=== PATIENT | male | born 1950 | race Caucasian/White ===

== ENCOUNTER 2019-02-09 22:28 | Observation (INO) | payer MEDICARE ==
[2019-02-09] MEDS ORDERED: Cardizem IV 50 MG/10 ML IV ONE ×2 (22:56→23:23)
--- NOTE | 2019-02-09 22:56 | ERPHSYRPT ---
- History of Present Illness Time Seen by Provider: 02/09/19 22:52 Source: patient, family Exam Limitations: no limitations Physician History: pt with hx of afib on tx and intermittent , but cannot get out of it with usual methods/tx tongiht - no CP or sobreath already on eliquis Timing/Duration: today Activities at Onset: activity Quality: other (no pain) Location: other (no pain) Chest Pain Radiation: no radiation Severity of Pain-Max: none Severity of Pain-Current: none Nitro Today/Relief: no nitro taken today Aspirin Treatment Today: no aspirin today Associated Symptoms: other (palpitations) Allergies/Adverse Reactions: No Known Drug Allergies Allergy (Verified 02/09/19 22:38) Home Medications: Cholecalciferol (Vitamin D3) [Vitamin D] 1,000 unit PO DAILY 04/18/16 [ History] Esomeprazole Magnesium [Nexium] 40 mg PO DAILY 04/18/16 [History] Glucosamine/MSM/Chondroitin A [Glucosamine Chondroit MSM Tab] 1 each PO BID [History] Multivit-Mins/Iron/Folic/Lycop [Centrum Men's Tablet] 1 each PO DAILY 04/18/16 [ History] Pravastatin Sodium [Pravachol] 10 mg PO DAILY 04/18/16 [History] Diltiazem HCl 30 mg [Cardizem 30 MG] 240 mg PO DAILY 05/11/16 [History] Losartan Potassium 50 mg [Cozaar 50 MG] 1 tab PO DAILY 02/09/19 [History] Hx Tetanus, Diphtheria Vaccination/Date Given: No Hx Influenza Vaccination/Date Given: Yes (2014) Hx Pneumococcal Vaccination/Date Given: No - Review of Systems Constitutional: No Fever, No Chills Eyes: No Symptoms Ears, Nose, & Throat: No Symptoms Respiratory: No Cough, No Dyspnea Cardiac: Palpitations, No Chest Pain, No Edema, No Syncope Abdominal/Gastrointestinal: No Abdominal Pain, No Nausea, No Vomiting, No Diarrhea Genitourinary Symptoms: No Dysuria Musculoskeletal: No Back Pain, No Neck Pain Skin: No Rash Neurological: No Dizziness, No Focal Weakness, No Sensory Changes Psychological: No Symptoms Endocrine: No Symptoms All Other Systems: Reviewed and Negative - Past Medical History Pertinent Past Medical History: Yes Neurological History: No Pertinent History ENT History: No Pertinent History Cardiac History: Arrhythmia, Hypertension Respiratory History: Sleep Apnea Endocrine Medical History: No Pertinent History Musculoskeletal History: Arthritis GI Medical History: GERD History: No Pertinent History Psycho-Social History: No Pertinent History Male Reproductive Disorders: Prostate Problems - Past Surgical History Past Surgical History: Yes Male Surgical History: Prostate Surgery, Vasectomy - Social History Smoking Status: Never smoker Exposure to second hand smoke: No Alcohol Use: Socially Drug Use: none Patient Lives Alone: No Significant Family History: no pertinent family hx - Nursing Vital Signs Nursing Vital Signs: Initial Vital Signs Temperature 98.2 F 02/09/19 22:44 Pulse Rate 85 02/09/19 22:44 Respiratory Rate 21 02/09/19 22:44 Blood Pressure 139/94 02/09/19 22:44 O2 Sat by Pulse Oximetry 96 02/09/19 22:44 Pain Scale Pain Intensity 0 - Physical Exam General Appearance: no apparent distress, alert Eye Exam: PERRL/EOMI, eyes nml inspection Ears, Nose, Throat Exam: normal ENT inspection, moist mucous membranes Neck Exam: normal inspection, non-tender, supple Respiratory Exam: normal breath sounds, lungs clear, No respiratory distress Cardiovascular Exam: normal heart sounds, irregular, No edema Gastrointestinal/Abdomen Exam: soft, No tenderness, No mass Back Exam: normal inspection, No CVA tenderness, No vertebral tenderness Extremity Exam: normal inspection, normal range of motion Neurologic Exam: alert, oriented x 3, cooperative, normal mood/affect, nml cerebellar function, sensation nml, No motor deficits Skin Exam: normal color, warm, dry Lymphatic Exam: No adenopathy - Course Nursing assessment & vital signs reviewed: Yes EKG Interpreted by Me: A-fib, NORMAL INTERVALS, Non-specific ST Changes, Other ( [id number]) Ordered Tests: Active Orders 24 hr Category Date Time Status Filler Shredder Machine STAT Care 02/09/19 22:57 Active EKG-ER Only STAT Care 02/09/19 22:56 Active IV Insertion STAT Care 02/09/19 22:56 Active Pulse Oximetry (ED) STAT Care 02/09/19 22:56 Active CHEST 2 VIEWS (PA AND LAT) Stat Exams 02/09/19 22:56 Taken CBC W DIFF Stat Lab 02/09/19 22:55 Completed CMP Stat Lab 02/09/19 22:55 Completed D-DIMER QUANTITATION Stat Lab 02/09/19 22:55 Completed Lactic Acid Stat Lab 02/09/19 22:56 Completed NT PRO BNP Stat Lab 02/09/19 22:55 Completed TROPONIN Q3H Lab 02/09/19 22:55 Completed TROPONIN Q3H Lab 02/10/19 02:00 Ordered TROPONIN Q3H Lab 02/10/19 05:00 Ordered TROPONIN Q3H Lab 02/10/19 08:00 Ordered TROPONIN Q3H Lab 02/10/19 11:00 Ordered Medication Summary Generic Name Dose Route Start Last Admin Trade Name Freq PRN Reason Stop Dose Admin Sodium Chloride 1,000 mls @ 100 mls/hr 02/09/19 23:00 02/09/19 23:29 Sodium Chloride 0.9% 1000 Ml IV 03/11/19 22:59 100 mls/hr .Q10H [facility] Administration Discontinued Medications Generic Name Dose Route Start Last Admin Trade Name Freq PRN Reason Stop Dose Admin Diltiazem HCl 10 mg 02/09/19 22:56 02/09/19 23:29 Cardizem Iv 50 Mg/10 Ml IV 02/09/19 22:57 10 mg STAT ONE Administration Diltiazem HCl Confirm 02/09/19 23:23 Cardizem Iv 50 Mg/10 Ml Administered 02/09/19 23:24 Dose 50 mg IV .[facility] Lab/Rad Data: Laboratory Result Diagrams 02/09/19 22:55 02/09/19 22:55 Laboratory Results 02/10/19 02/09/19 02/09/19 Range/Units 00:50 22:55 22:55 WBC (4.0-10.5) K/mm3 RBC (4.1-5.6) M/mm3 Hgb (12.5-18.0) gm/dl Hct (42-50) % MCV (78-100) fl MCH (26-32) pg MCHC (32-36) g/dl RDW (11.5-14.0) % Plt Count (150-450) K/mm3 MPV (6-9.5) fl Gran % (36.0-66.0) % Eos # (Auto) (0-0.5) Absolute Lymphs (auto) (1.0-4.6) Absolute Monos (auto) (0.0-1.3) Lymphocytes % (24.0-44.0) % Monocytes % (0.0-12.0) % Eosinophils % (0.00-5.0) % Basophils % (0.0-0.4) % Absolute Granulocytes (1.4-6.9) Basophils # (0-0.4) D-Dimer 321 (215-500) ng/mL Sodium (137-145) mmol/L Potassium (3.5-5.1) mmol/L Chloride (98-107) mmol/L Carbon Dioxide (22-30) mmol/L Anion Gap (5-15) MEQ/L BUN (9-20) mg/dL Creatinine (0.66-1.25) mg/dL Estimated GFR ML/MIN Glucose (74-106) mg/dL Lactic Acid 1.4 (0.4-2.0) Calcium (8.4-10.2) mg/dL Total Bilirubin (0.2-1.3) mg/dL AST (17-59) U/L ALT (0-50) U/L Alkaline Phosphatase (38-126) U/L Troponin I < 0.012 (0.000-0.034) ng/mL NT-Pro-B Natriuret Pep (0-900) pg/mL Serum Total Protein (6.3-8.2) g/dL Albumin (3.5-5.0) g/dL 02/09/19 02/09/19 Range/Units 22:55 22:55 WBC 7.9 (4.0-10.5) K/mm3 RBC 4.74 (4.1-5.6) M/mm3 Hgb 14.6 (12.5-18.0) gm/dl Hct 43.0 (42-50) % MCV 90.7 (78-100) fl MCH 30.8 (26-32) pg MCHC 34.0 (32-36) g/dl RDW 12.9 (11.5-14.0) % Plt Count 256 (150-450) K/mm3 MPV 9.2 (6-9.5) fl Gran % 57.6 (36.0-66.0) % Eos # (Auto) 0.24 (0-0.5) Absolute Lymphs (auto) 2.37 (1.0-4.6) Absolute Monos (auto) 0.72 (0.0-1.3) Lymphocytes % 30.0 (24.0-44.0) % Monocytes % 9.1 (0.0-12.0) % Eosinophils % 3.0 (0.00-5.0) % Basophils % 0.3 (0.0-0.4) % Absolute Granulocytes 4.56 (1.4-6.9) Basophils # 0.02 (0-0.4) D-Dimer (215-500) ng/mL Sodium 140 (137-145) mmol/L Potassium 3.8 (3.5-5.1) mmol/L Chloride 104 (98-107) mmol/L Carbon Dioxide 28 (22-30) mmol/L Anion Gap 11.6 (5-15) MEQ/L BUN 21 H (9-20) mg/dL Creatinine 0.86 (0.66-1.25) mg/dL Estimated GFR > 60.0 ML/MIN Glucose 110 H (74-106) mg/dL Lactic Acid (0.4-2.0) Calcium 9.8 (8.4-10.2) mg/dL Total Bilirubin 0.40 (0.2-1.3) mg/dL AST 25 (17-59) U/L ALT 22 (0-50) U/L Alkaline Phosphatase 75 (38-126) U/L Troponin I (0.000-0.034) ng/mL NT-Pro-B Natriuret Pep 103 (0-900) pg/mL Serum Total Protein 7.5 (6.3-8.2) g/dL Albumin 4.3 (3.5-5.0) g/dL - Progress Progress: improved, re-examined Air Movement: good Progress Note: 02/10/19 01:[address] clayton who advised continue current therapy but checking enzymes over night and agrees with obs and also dr manzanares who will be admitting DrGeorge and pt also agrees. Blood Culture(s) Obtained: No Antibiotics given: No Discussed with : Efra Sierra Will see patient in: hospital (observation) Counseled pt/family regarding: lab results, diagnosis, need for follow-up, rad results - Departure Time of Disposition: 01:32 Departure Disposition: Observation Clinical Impression: Afib Condition: Good Critical Care Time: No Referrals: SOFIA HERNANDEZ [Primary Care Provider] -
[2019-02-09 23:15] LABS: BASOPHIL % 0.3 % (0.0-0.4); Basophil (Absolute #) 0.02 (0-0.4); Eosinophil (Absolute #) 0.24 (0-0.5); Granulocyte Absolute (ANC) 4.56 (1.4-6.9); Granulocytes % 57.6 % (36.0-66.0); Hemoglobin 14.6 gm/dl (12.5-18.0); Lymphocyte (Absolute #) 2.37 (1.0-4.6); Mean Cell Volume 90.7 fl (78-100); Mean Corpuscular Hemoglobin 30.8 pg (26-32); Mean Platelet Volume 9.2 fl (6-9.5); Monocyte (Absolute #) 0.72 (0.0-1.3); Monocytes % 9.1 % (0.0-12.0); Platelet Count 256 K/mm3 (150-450); Red Blood Count 4.74 M/mm3 (4.1-5.6); Red Cell Distribution Width 12.9 % (11.5-14.0); White Blood Count 7.9 K/mm3 (4.0-10.5)
[2019-02-09] MEDS: Sodium Chloride 0.9% 1000 ML 1,000 ML IV SCH (23:29)
[2019-02-09 23:35] LABS: ALBUMIN 4.3 g/dL (3.5-5.0); ALKALINE PHOSPHATASE 75 U/L (38-126); ANION GAP 11.6 MEQ/L (5-15); BLOOD UREA NITROGEN 21 mg/dL (9-20); CHLORIDE 104 mmol/L (98-107); Calcium 9.8 mg/dL (8.4-10.2); Carbon Dioxide 28 mmol/L (22-30); Creatinine 1 0.86 mg/dL (0.66-1.25); Glucose 110 mg/dL (74-106); NT PRO BNP 103 pg/mL (0-900); Potassium 3.8 mmol/L (3.5-5.1); SGOT/AST 25 U/L (17-59); SGPT/ALT 22 U/L (0-50); SODIUM 140 mmol/L (137-145); Total Protein 7.5 g/dL (6.3-8.2)
[2019-02-10] MEDS ORDERED: Zofran 4 MG/2 ML VIAL IV PRN (02:34)
[2019-02-10] MEDS ORDERED: NovoLIN R SQ PRN (02:34)
[2019-02-10] MEDS ORDERED: MORPHINE SULFATE 4 MG INJ IV PRN (02:34)
[2019-02-10 06:05] LABS: BASOPHIL % 0.3 % (0.0-0.4); Basophil (Absolute #) 0.02 (0-0.4); Eosinophil % 3.5 % (0.00-5.0); Eosinophil (Absolute #) 0.27 (0-0.5); Granulocyte Absolute (ANC) 4.91 (1.4-6.9); Granulocytes % 63.5 % (36.0-66.0); Hemoglobin 14.5 gm/dl (12.5-18.0); Lymphocyte (Absolute #) 1.85 (1.0-4.6); Mean Cell Volume 90.5 fl (78-100); Mean Corpuscular Hemoglobin 30.5 pg (26-32); Mean Corpuscular Hgb Concent. 33.7 g/dl (32-36); Mean Platelet Volume 9.3 fl (6-9.5); Monocyte (Absolute #) 0.67 (0.0-1.3); Monocytes % 8.7 % (0.0-12.0); Platelet Count 243 K/mm3 (150-450); Red Blood Count 4.75 M/mm3 (4.1-5.6); Red Cell Distribution Width 12.7 % (11.5-14.0); White Blood Count 7.7 K/mm3 (4.0-10.5)
[2019-02-10 06:29] LABS: ALBUMIN 3.9 g/dL (3.5-5.0); ALKALINE PHOSPHATASE 74 U/L (38-126); ANION GAP 10.2 MEQ/L (5-15); BLOOD UREA NITROGEN 16 mg/dL (9-20); CHLORIDE 107 mmol/L (98-107); Calcium 9.2 mg/dL (8.4-10.2); Carbon Dioxide 27 mmol/L (22-30); Creatinine 1 0.83 mg/dL (0.66-1.25); Glucose 112 mg/dL (74-106); Potassium 3.7 mmol/L (3.5-5.1); SGOT/AST 22 U/L (17-59); SGPT/ALT 21 U/L (0-50); SODIUM 141 mmol/L (137-145); Total Protein 6.9 g/dL (6.3-8.2)
--- NOTE | 2019-02-10 08:37 | XRAY ---
Indication: Atrial fibrillation. Comparison: April 27, 2016. PA/lateral chest again hyperinflated and clear again with incidental tiny calcified granulomas. Heart and mediastinal structures within normal limits. Bony thorax intact again with mild degenerative changes. Impression: Stable nonacute hyperinflated chest with chronic features.
[2019-02-10] MEDS: Cardizem CD 240 MG PO SCH (08:52)
[2019-02-10] MEDS: ELIQUIS 2.5 MG TABLET PO SCH ×2 (08:54→19:51)
[2019-02-10] MEDS: TYLENOL EXTRA STRENGTH 500 MG PO PRN ×2 (08:55→21:57)
[2019-02-10] MEDS: Sodium Chloride 0.9% 1000 ML 1,000 ML IV SCH ×3 (09:11→18:56)
[2019-02-10] MEDS ORDERED: MEDICATION INTERVENTION PO SCH (10:00)
[2019-02-10] MEDS ORDERED: Protonix 40MG Tablet PO PRN (10:00)
[2019-02-10] MEDS ORDERED: LYCOP PO SCH (10:00)
[2019-02-10] MEDS ORDERED: CHONDROITIN A PO SCH (10:00)
[2019-02-10] MEDS ORDERED: MULTIVIT MINS PO SCH (10:00)
[2019-02-10] MEDS ORDERED: IRON PO SCH (10:00)
[2019-02-10] MEDS ORDERED: GLUCOSAMINE PO SCH (10:00)
[2019-02-10] MEDS ORDERED: [UNRECOGNIZED DRUG - OTHER] PO SCH (10:00)
[2019-02-10] MEDS ORDERED: FOLIC PO SCH (10:00)
[2019-02-10] MEDS ORDERED: MSM PO SCH (10:00)
[2019-02-10] MEDS: VITAMIN D PO SCH (10:17)
[2019-02-10] MEDS: THERAGRAN MULTIVITAMIN PO SCH (10:17)
[2019-02-10] MEDS: Cozaar 50 MG PO SCH ×2 (10:18→19:50)
--- NOTE | 2019-02-10 11:59 | PCM.SSS ---
History of Present Illness - Chief Complaint Chief Complaint: Atrial Fibrillation History of Present Illness: is a 68 year old male pt of Dr. Hernandez and Dr. Sierra with HTN and atrial fibrillation who was admitted through ER with Afib with RVR. Pt typically takes and extra 30mg cardizem twice over a period of 2-4 hours at home when he experiences fluttering in the chest and tachycardia - this did not work yesterday. He came to the ER and was given 10mg cardizem IV. HR was in the 80s. Overnight HR crept up to 120 at times. He received his morning medicine and the HR is now in the 80s and 90s, irregular. Pt is on Eliquis. Denies CP or SOB. - Review of Systems Cardiac: Palpitations Psychological: No Depression, No Suicidal Ideations All Other Systems: Reviewed and Negative Medications & Allergies Home Medications: Home Medication List Cholecalciferol (Vitamin D3) [Vitamin D] 1,000 unit PO DAILY 04/18/16 [ History Confirmed 02/09/19] Glucosamine/MSM/Chondroitin A [Glucosamine Chondroit MSM Tab] 1 each PO BID [History Confirmed 02/09/19] Multivit-Mins/Iron/Folic/Lycop [Centrum Men's Tablet] 1 each PO DAILY 04/18/16 [ History Confirmed 02/09/19] Apixaban [Eliquis 5 mg Tablet] 5 mg PO BID #0 tablet 04/19/16 [Rx Confirmed 02/09/19] Losartan Potassium 50 mg [Cozaar 50 MG] 1 tab PO DAILY 02/09/19 [History Confirmed 02/09/19] Diltiazem HCl [Diltiazem 24Hr ER] 240 mg PO DAILY 02/10/19 [History Confirmed ] PANTOPRAZOLE 40 mg Tablet [Protonix 40MG Tablet] 40 mg PO UD 02/10/19 [ History Confirmed 02/10/19] Pravastatin Sodium 40 mg PO HS 02/10/19 [History Confirmed 02/10/19] Allergies/Adverse Reactions: Allergies Allergy/AdvReac Type Severity Reaction Status Date / Time No Known Drug Allergies Allergy Verified 02/09/19 22:38 - Past Medical History Past Medical History: Yes Neurological History: No Pertinent History ENT History: No Pertinent History Cardiac History: Arrhythmia, High Cholesterol, Hypertension Respiratory History: Sleep Apnea Endocrine Medical History: No Pertinent History Musculoskelatal History: Arthritis GI Medical History: GERD History: No Pertinent History Pyscho-Social History: No Pertinent History Male Reproductive Disorders: Prostate Problems - Past Surgical History Past Surgical History: Yes Neuro Surgical History: No Pertinent History Cardiac History: No Pertinent History Respiratory Surgery: No Pertinent History GI Surgical History: No Pertinent History Genitourinary Surgical Hx: No Pertinent History Musculskeletal Surgical Hx: No Pertinent History Male Surgical History: Prostate Surgery, Vasectomy - Social History Smoking Status: Never smoker Exposure to second hand smoke: No Alcohol: None Drug Use: none Significant Family History: no pertinent family hx - Physical Exam Vital Signs: Vital Signs - 24 hr Temp Pulse Resp BP Pulse Ox 02/10/19 07:26 97.8 F 110 H 16 142/77 98 02/10/19 03:14 97.8 F 92 H 12 136/82 94 L 02/10/19 03:00 94 L 02/10/19 01:40 75 18 119/79 97 02/10/19 00:40 64 16 130/77 94 L 02/09/19 23:50 81 21 119/77 95 02/09/19 23:27 88 17 117/71 95 02/09/19 23:11 98 02/09/19 22:44 98.2 F 85 21 139/94 96 General Appearance: no apparent distress, alert Neurologic Exam: oriented x 3, cooperative Eye Exam: eyes nml inspection Ears, Nose, Throat Exam: moist mucous membranes Neck Exam: normal inspection, non-tender, No lymphadenopathy Respiratory Exam: normal breath sounds, lungs clear, No crackles/rales, No rhonchi, No wheezing Cardiovascular Exam: normal heart sounds, irregular, No murmur Gastrointestinal/Abdomen Exam: soft, normal bowel sounds, tenderness (mild suprapubic), No distention, No mass, No guarding, No rebound Back Exam: normal inspection, No rash Extremity Exam: normal inspection, No pedal edema, No swelling Results - Labs Lab/Micro Results: Accuchecks Date 02/10/19 Time 07:30 Lab Results-Last 24 Hours 02/09/19 02/09/19 02/09/19 Range/Units 22:55 22:55 22:55 WBC 7.9 (4.0-10.5) K/mm3 RBC 4.74 (4.1-5.6) M/mm3 Hgb 14.6 (12.5-18.0) gm/dl Hct 43.0 (42-50) % MCV 90.7 (78-100) fl MCH 30.8 (26-32) pg MCHC 34.0 (32-36) g/dl RDW 12.9 (11.5-14.0) % Plt Count 256 (150-450) K/mm3 MPV 9.2 (6-9.5) fl Gran % 57.6 (36.0-66.0) % Eos # (Auto) 0.24 (0-0.5) Absolute Lymphs (auto) 2.37 (1.0-4.6) Absolute Monos (auto) 0.72 (0.0-1.3) Lymphocytes % 30.0 (24.0-44.0) % Monocytes % 9.1 (0.0-12.0) % Eosinophils % 3.0 (0.00-5.0) % Basophils % 0.3 (0.0-0.4) % Absolute Granulocytes 4.56 (1.4-6.9) Basophils # 0.02 (0-0.4) D-Dimer 321 (215-500) ng/mL Sodium 140 (137-145) mmol/L Potassium 3.8 (3.5-5.1) mmol/L Chloride 104 (98-107) mmol/L Carbon Dioxide 28 (22-30) mmol/L Anion Gap 11.6 (5-15) MEQ/L BUN 21 H (9-20) mg/dL Creatinine 0.86 (0.66-1.25) mg/dL Estimated GFR > 60.0 ML/MIN Glucose 110 H (74-106) mg/dL Lactic Acid (0.4-2.0) Calcium 9.8 (8.4-10.2) mg/dL Total Bilirubin 0.40 (0.2-1.3) mg/dL AST 25 (17-59) U/L ALT 22 (0-50) U/L Alkaline Phosphatase 75 (38-126) U/L Troponin I (0.000-0.034) ng/mL NT-Pro-B Natriuret Pep 103 (0-900) pg/mL Serum Total Protein 7.5 (6.3-8.2) g/dL Albumin 4.3 (3.5-5.0) g/dL 02/09/19 02/10/19 02/10/19 Range/Units 22:55 00:50 02:20 WBC (4.0-10.5) K/mm3 RBC (4.1-5.6) M/mm3 Hgb (12.5-18.0) gm/dl Hct (42-50) % MCV (78-100) fl MCH (26-32) pg MCHC (32-36) g/dl RDW (11.5-14.0) % Plt Count (150-450) K/mm3 MPV (6-9.5) fl Gran % (36.0-66.0) % Eos # (Auto) (0-0.5) Absolute Lymphs (auto) (1.0-4.6) Absolute Monos (auto) (0.0-1.3) Lymphocytes % (24.0-44.0) % Monocytes % (0.0-12.0) % Eosinophils % (0.00-5.0) % Basophils % (0.0-0.4) % Absolute Granulocytes (1.4-6.9) Basophils # (0-0.4) D-Dimer (215-500) ng/mL Sodium (137-145) mmol/L Potassium (3.5-5.1) mmol/L Chloride (98-107) mmol/L Carbon Dioxide (22-30) mmol/L Anion Gap (5-15) MEQ/L BUN (9-20) mg/dL Creatinine (0.66-1.25) mg/dL Estimated GFR ML/MIN Glucose (74-106) mg/dL Lactic Acid 1.4 (0.4-2.0) Calcium (8.4-10.2) mg/dL Total Bilirubin (0.2-1.3) mg/dL AST (17-59) U/L ALT (0-50) U/L Alkaline Phosphatase (38-126) U/L Troponin I < 0.012 < 0.012 (0.000-0.034) ng/mL NT-Pro-B Natriuret Pep (0-900) pg/mL Serum Total Protein (6.3-8.2) g/dL Albumin (3.5-5.0) g/dL 02/10/19 02/10/19 02/10/19 Range/Units 05:45 05:45 05:45 WBC 7.7 (4.0-10.5) K/mm3 RBC 4.75 (4.1-5.6) M/mm3 Hgb 14.5 (12.5-18.0) gm/dl Hct 43.0 (42-50) % MCV 90.5 (78-100) fl MCH 30.5 (26-32) pg MCHC 33.7 (32-36) g/dl RDW 12.7 (11.5-14.0) % Plt Count 243 (150-450) K/mm3 MPV 9.3 (6-9.5) fl Gran % 63.5 (36.0-66.0) % Eos # (Auto) 0.27 (0-0.5) Absolute Lymphs (auto) 1.85 (1.0-4.6) Absolute Monos (auto) 0.67 (0.0-1.3) Lymphocytes % 24.0 (24.0-44.0) % Monocytes % 8.7 (0.0-12.0) % Eosinophils % 3.5 (0.00-5.0) % Basophils % 0.3 (0.0-0.4) % Absolute Granulocytes 4.91 (1.4-6.9) Basophils # 0.02 (0-0.4) D-Dimer (215-500) ng/mL Sodium 141 (137-145) mmol/L Potassium 3.7 (3.5-5.1) mmol/L Chloride 107 (98-107) mmol/L Carbon Dioxide 27 (22-30) mmol/L Anion Gap 10.2 (5-15) MEQ/L BUN 16 (9-20) mg/dL Creatinine 0.83 (0.66-1.25) mg/dL Estimated GFR > 60.0 ML/MIN Glucose 112 H (74-106) mg/dL Lactic Acid (0.4-2.0) Calcium 9.2 (8.4-10.2) mg/dL Total Bilirubin 0.60 (0.2-1.3) mg/dL AST 22 (17-59) U/L ALT 21 (0-50) U/L Alkaline Phosphatase 74 (38-126) U/L Troponin I < 0.012 (0.000-0.034) ng/mL NT-Pro-B Natriuret Pep (0-900) pg/mL Serum Total Protein 6.9 (6.3-8.2) g/dL Albumin 3.9 (3.5-5.0) g/dL 02/10/19 02/10/19 Range/Units 08:05 11:05 WBC (4.0-10.5) K/mm3 RBC (4.1-5.6) M/mm3 Hgb (12.5-18.0) gm/dl Hct (42-50) % MCV (78-100) fl MCH (26-32) pg MCHC (32-36) g/dl RDW (11.5-14.0) % Plt Count (150-450) K/mm3 MPV (6-9.5) fl Gran % (36.0-66.0) % Eos # (Auto) (0-0.5) Absolute Lymphs (auto) (1.0-4.6) Absolute Monos (auto) (0.0-1.3) Lymphocytes % (24.0-44.0) % Monocytes % (0.0-12.0) % Eosinophils % (0.00-5.0) % Basophils % (0.0-0.4) % Absolute Granulocytes (1.4-6.9) Basophils # (0-0.4) D-Dimer (215-500) ng/mL Sodium (137-145) mmol/L Potassium (3.5-5.1) mmol/L Chloride (98-107) mmol/L Carbon Dioxide (22-30) mmol/L Anion Gap (5-15) MEQ/L BUN (9-20) mg/dL Creatinine (0.66-1.25) mg/dL Estimated GFR ML/MIN Glucose (74-106) mg/dL Lactic Acid (0.4-2.0) Calcium (8.4-10.2) mg/dL Total Bilirubin (0.2-1.3) mg/dL AST (17-59) U/L ALT (0-50) U/L Alkaline Phosphatase (38-126) U/L Troponin I < 0.012 < 0.012 (0.000-0.034) ng/mL NT-Pro-B Natriuret Pep (0-900) pg/mL Serum Total Protein (6.3-8.2) g/dL Albumin (3.5-5.0) g/dL Accuchecks Date 02/10/19 Time 07:30 - Radiology Impressions Radiology Exams & Impressions: Radiology Procedures Category Date Time Status CHEST 2 VIEWS (PA AND LAT) Stat Exams 02/09/19 22:56 Completed Assessment/Plan (1) Afib Current Visit: Yes Status: Acute Qualifiers: Atrial fibrillation type: chronic Qualified Code(s): I48.2 - Chronic atrial fibrillation Assessment & Plan: He is doing well on home cardizem ER. Troponins negative x 4 and one more is pending. The ER doctor spoke with DR. Sierra last night, who did not want to change his po cardizem. Sounds like he has been stable on this dose for some time, aside from an exacerbation at home twice a year which he self treats with the short acting 30mg cardizem pills. If his HR remains stable into the afternoon, he can be discharged to home this afternoon. Code(s): I48.91 - UNSPECIFIED ATRIAL FIBRILLATION Hospital Summary - Hospital Course Hospital Course: Pt is 68 yo male pt of Dr. Hernandez and Dr. Rigo vargas afib and HTN who came in with elevated HR and afib. Was treated with 10mg IV push cardizem in ER. Overnight HR increased again but is down with his usual a.m. medicine. If his HR stays down, can be discharged to home this afternoon. His troponins have been negative x 4; one more is pending. - Vitals & Intake/Output Vital Signs: Vital Signs Temperature 97.8 F 02/10/19 07:26 Pulse Rate 110 H 02/10/19 07:26 Respiratory Rate 16 02/10/19 07:26 Blood Pressure 142/77 02/10/19 07:26 O2 Sat by Pulse Oximetry 98 02/10/19 07:26 Intake & Output: Intake & Output 02/07/19 02/08/19 02/09/19 02/10/19 11:59 11:59 11:59 11:59 Weight 90.5 kg - Lab Result Diagrams: 02/10/19 05:45 02/10/19 05:45 Lab Results-Last 24 Hrs: Accuchecks Date 02/10/19 Time 07:30 Lab Results-Last 24 Hours 02/09/19 02/09/19 02/09/19 Range/Units 22:55 22:55 22:55 WBC 7.9 (4.0-10.5) K/mm3 RBC 4.74 (4.1-5.6) M/mm3 Hgb 14.6 (12.5-18.0) gm/dl Hct 43.0 (42-50) % MCV 90.7 (78-100) fl MCH 30.8 (26-32) pg MCHC 34.0 (32-36) g/dl RDW 12.9 (11.5-14.0) % Plt Count 256 (150-450) K/mm3 MPV 9.2 (6-9.5) fl Gran % 57.6 (36.0-66.0) % Eos # (Auto) 0.24 (0-0.5) Absolute Lymphs (auto) 2.37 (1.0-4.6) Absolute Monos (auto) 0.72 (0.0-1.3) Lymphocytes % 30.0 (24.0-44.0) % Monocytes % 9.1 (0.0-12.0) % Eosinophils % 3.0 (0.00-5.0) % Basophils % 0.3 (0.0-0.4) % Absolute Granulocytes 4.56 (1.4-6.9) Basophils # 0.02 (0-0.4) D-Dimer 321 (215-500) ng/mL Sodium 140 (137-145) mmol/L Potassium 3.8 (3.5-5.1) mmol/L Chloride 104 (98-107) mmol/L Carbon Dioxide 28 (22-30) mmol/L Anion Gap 11.6 (5-15) MEQ/L BUN 21 H (9-20) mg/dL Creatinine 0.86 (0.66-1.25) mg/dL Estimated GFR > 60.0 ML/MIN Glucose 110 H (74-106) mg/dL Lactic Acid (0.4-2.0) Calcium 9.8 (8.4-10.2) mg/dL Total Bilirubin 0.40 (0.2-1.3) mg/dL AST 25 (17-59) U/L ALT 22 (0-50) U/L Alkaline Phosphatase 75 (38-126) U/L Troponin I (0.000-0.034) ng/mL NT-Pro-B Natriuret Pep 103 (0-900) pg/mL Serum Total Protein 7.5 (6.3-8.2) g/dL Albumin 4.3 (3.5-5.0) g/dL 02/09/19 02/10/19 02/10/19 Range/Units 22:55 00:50 02:20 WBC (4.0-10.5) K/mm3 RBC (4.1-5.6) M/mm3 Hgb (12.5-18.0) gm/dl Hct (42-50) % MCV (78-100) fl MCH (26-32) pg MCHC (32-36) g/dl RDW (11.5-14.0) % Plt Count (150-450) K/mm3 MPV (6-9.5) fl Gran % (36.0-66.0) % Eos # (Auto) (0-0.5) Absolute Lymphs (auto) (1.0-4.6) Absolute Monos (auto) (0.0-1.3) Lymphocytes % (24.0-44.0) % Monocytes % (0.0-12.0) % Eosinophils % (0.00-5.0) % Basophils % (0.0-0.4) % Absolute Granulocytes (1.4-6.9) Basophils # (0-0.4) D-Dimer (215-500) ng/mL Sodium (137-145) mmol/L Potassium (3.5-5.1) mmol/L Chloride (98-107) mmol/L Carbon Dioxide (22-30) mmol/L Anion Gap (5-15) MEQ/L BUN (9-20) mg/dL Creatinine (0.66-1.25) mg/dL Estimated GFR ML/MIN Glucose (74-106) mg/dL Lactic Acid 1.4 (0.4-2.0) Calcium (8.4-10.2) mg/dL Total Bilirubin (0.2-1.3) mg/dL AST (17-59) U/L ALT (0-50) U/L Alkaline Phosphatase (38-126) U/L Troponin I < 0.012 < 0.012 (0.000-0.034) ng/mL NT-Pro-B Natriuret Pep (0-900) pg/mL Serum Total Protein (6.3-8.2) g/dL Albumin (3.5-5.0) g/dL 02/10/19 02/10/19 02/10/19 Range/Units 05:45 05:45 05:45 WBC 7.7 (4.0-10.5) K/mm3 RBC 4.75 (4.1-5.6) M/mm3 Hgb 14.5 (12.5-18.0) gm/dl Hct 43.0 (42-50) % MCV 90.5 (78-100) fl MCH 30.5 (26-32) pg MCHC 33.7 (32-36) g/dl RDW 12.7 (11.5-14.0) % Plt Count 243 (150-450) K/mm3 MPV 9.3 (6-9.5) fl Gran % 63.5 (36.0-66.0) % Eos # (Auto) 0.27 (0-0.5) Absolute Lymphs (auto) 1.85 (1.0-4.6) Absolute Monos (auto) 0.67 (0.0-1.3) Lymphocytes % 24.0 (24.0-44.0) % Monocytes % 8.7 (0.0-12.0) % Eosinophils % 3.5 (0.00-5.0) % Basophils % 0.3 (0.0-0.4) % Absolute Granulocytes 4.91 (1.4-6.9) Basophils # 0.02 (0-0.4) D-Dimer (215-500) ng/mL Sodium 141 (137-145) mmol/L Potassium 3.7 (3.5-5.1) mmol/L Chloride 107 (98-107) mmol/L Carbon Dioxide 27 (22-30) mmol/L Anion Gap 10.2 (5-15) MEQ/L BUN 16 (9-20) mg/dL Creatinine 0.83 (0.66-1.25) mg/dL Estimated GFR > 60.0 ML/MIN Glucose 112 H (74-106) mg/dL Lactic Acid (0.4-2.0) Calcium 9.2 (8.4-10.2) mg/dL Total Bilirubin 0.60 (0.2-1.3) mg/dL AST 22 (17-59) U/L ALT 21 (0-50) U/L Alkaline Phosphatase 74 (38-126) U/L Troponin I < 0.012 (0.000-0.034) ng/mL NT-Pro-B Natriuret Pep (0-900) pg/mL Serum Total Protein 6.9 (6.3-8.2) g/dL Albumin 3.9 (3.5-5.0) g/dL 02/10/19 02/10/19 Range/Units 08:05 11:05 WBC (4.0-10.5) K/mm3 RBC (4.1-5.6) M/mm3 Hgb (12.5-18.0) gm/dl Hct (42-50) % MCV (78-100) fl MCH (26-32) pg MCHC (32-36) g/dl RDW (11.5-14.0) % Plt Count (150-450) K/mm3 MPV (6-9.5) fl Gran % (36.0-66.0) % Eos # (Auto) (0-0.5) Absolute Lymphs (auto) (1.0-4.6) Absolute Monos (auto) (0.0-1.3) Lymphocytes % (24.0-44.0) % Monocytes % (0.0-12.0) % Eosinophils % (0.00-5.0) % Basophils % (0.0-0.4) % Absolute Granulocytes (1.4-6.9) Basophils # (0-0.4) D-Dimer (215-500) ng/mL Sodium (137-145) mmol/L Potassium (3.5-5.1) mmol/L Chloride (98-107) mmol/L Carbon Dioxide (22-30) mmol/L Anion Gap (5-15) MEQ/L BUN (9-20) mg/dL Creatinine (0.66-1.25) mg/dL Estimated GFR ML/MIN Glucose (74-106) mg/dL Lactic Acid (0.4-2.0) Calcium (8.4-10.2) mg/dL Total Bilirubin (0.2-1.3) mg/dL AST (17-59) U/L ALT (0-50) U/L Alkaline Phosphatase (38-126) U/L Troponin I < 0.012 < 0.012 (0.000-0.034) ng/mL NT-Pro-B Natriuret Pep (0-900) pg/mL Serum Total Protein (6.3-8.2) g/dL Albumin (3.5-5.0) g/dL Micro Results-Entire Visit: Accuchecks Date 02/10/19 Time 07:30 - Radiology Exams Ordered Rad Exams-Entire Visit: Radiology Procedures Category Date Time Status CHEST 2 VIEWS (PA AND LAT) Stat Exams 02/09/19 22:56 Completed - Discharge Disposition: Home, Self-Care Condition: Good Prescriptions: Continue Multivit-Mins/Iron/Folic/Lycop [Centrum Men's Tablet] 1 each PO DAILY Glucosamine/MSM/Chondroitin A [Glucosamine Chondroit MSM Tab] 1 each PO BID Cholecalciferol (Vitamin D3) [Vitamin D] 1,000 unit PO DAILY Apixaban [Eliquis 5 mg Tablet] 5 mg PO BID #0 tablet Losartan Potassium 50 mg [Cozaar 50 MG] 1 tab PO DAILY Pravastatin Sodium 40 mg PO HS PANTOPRAZOLE 40 mg Tablet [Protonix 40MG Tablet] 40 mg PO UD Diltiazem HCl [Diltiazem 24Hr ER] 240 mg PO DAILY Follow up with: SOFIA HERNANDEZ [Primary Care Provider] - 1 Week
[2019-02-10] MEDS ORDERED: Cardizem IV 50 MG/10 ML IV ONE ×3 (12:10→16:50)
[2019-02-10] MEDS ORDERED: CARDIZEM DRIP 100 MG/100 ML D5W 100 ML IV PRN (17:15)
[2019-02-10] MEDS ORDERED: Zocor 10MG ONE (19:45)
[2019-02-10] MEDS ORDERED: Zocor 10MG PO SCH (22:00)
[2019-02-11] MEDS: Sodium Chloride 0.9% 1000 ML 1,000 ML IV SCH (04:35)
[2019-02-11] MEDS: ELIQUIS 2.5 MG TABLET PO SCH (07:39)
--- NOTE | 2019-02-11 08:27 | PCM.NOTE ---
Date and Time: 02/11/19821 Subjective Assessment: Patient reports he thinks his heart rate has converted to sinus around 2 am. He reports problems like this at home but took immediate release cardizem per Dr. Sierra's instructions and it would usually control it. He last saw Dr. Sierra in November and no changes at that time. He is feeling well. Good appetite, no LE edema. - Review of Systems Constitutional: No Symptoms Eyes: No Symptoms Ears, Nose, & Throat: No Symptoms Respiratory: No Symptoms Cardiac: No Symptoms Abdominal/Gastrointestinal: No Symptoms Genitourinary Symptoms: No Symptoms Musculoskeletal: No Symptoms Skin: No Symptoms Objective Exam General Appearance: no apparent distress Neurologic Exam: alert, cooperative, normal mood/affect Skin Exam: normal color, warm, dry, No rash Respiratory Exam: normal breath sounds, lungs clear, No crackles/rales, No rhonchi, No wheezing Cardiovascular Exam: regular rate/rhythm, normal heart sounds, No murmur, No friction rub, No gallop Gastrointestinal/Abdomen Exam: soft, normal bowel sounds, No tenderness, No distention, No mass Extremity Exam: normal inspection, other (no c/c/e; tawanna hose in place) OBJECTIVE DATA Vital Signs: Vital Signs - 24 hr Temp Pulse Resp BP BP Pulse Ox 02/11/19 07:39 97.6 F 60 20 140/80 96 02/11/19 04:00 98.7 F 57 L 14 125/74 95 02/11/19 03:00 95 02/11/19 00:00 65 16 118/75 95 02/10/19 20:00 98.8 F 78 16 132/80 95 02/10/19 17:38 90 17 124/81 02/10/19 16:00 97.7 F 130 H 18 122/82 95 02/10/19 12:00 98.6 F 78 24 138/76 98 Pain Assessment - Last Documented Pain Intensity 6 Pain Scale Used 0-10 Pain Scale Intake and Output: Intake & Output 02/09/19 02/10/19 02/11/19 02/12/19 06:59 06:59 06:59 06:59 Intake Total 3376 Balance 3376 Weight 90.5 kg 89.9 kg Lab Results: Lab Results-Last 24 Hours 02/10/19 02/10/19 Range/Units 08:05 11:05 Troponin I < 0.012 < 0.012 (0.000-0.034) ng/mL Radiology Exams: Radiology Procedures Category Date Time Status CHEST 2 VIEWS (PA AND LAT) Stat Exams 02/09/19 22:56 Completed Assessment/Plan (1) Paroxysmal atrial fibrillation with rapid ventricular response Current Visit: Yes Status: Acute Assessment & Plan: Converted to sinus rhythm this AM. Currently off cardizem drip on oral cardizem. Awaiting cardiology consult. Continue Eliquis 5 mg po bid. Code(s): I48.0 - PAROXYSMAL ATRIAL FIBRILLATION (2) Essential hypertension Current Visit: Yes Status: Acute Assessment & Plan: Well controlled, continue home medication. Code(s): I10 - ESSENTIAL (PRIMARY) HYPERTENSION (3) Mixed hyperlipidemia Current Visit: Yes Status: Acute Assessment & Plan: Continue pravastatin. Code(s): E78.2 - MIXED HYPERLIPIDEMIA (4) Prostate cancer Current Visit: Yes Status: Acute Assessment & Plan: Follows with urologist as outpatient. Code(s): C61 - MALIGNANT NEOPLASM OF PROSTATE
[2019-02-11] MEDS: VITAMIN D PO SCH (09:41)
[2019-02-11] MEDS: Cardizem CD 240 MG PO SCH (09:41)
[2019-02-11] MEDS: THERAGRAN MULTIVITAMIN PO SCH (09:41)
[2019-02-11 13:02] VITALS: BP 155/84; PULSE 72; O2SAT 95
[2019-02-11] MEDS ORDERED: Cozaar 50 MG PO SCH (19:00)
[2019-02-11] MEDS ORDERED: ELIQUIS 2.5 MG TABLET PO SCH (19:00)
== END 2019-02-11 15:08 | disposition home or self-care (01) ==
LOC: ED 22:28 → MED SURG 02-10 02:31 → OBSVTOIN 02-10 02:31 → INTOOBSV 02-10 02:31 → ICU 02-10 17:28
PROVIDERS: ADMIT Internal Medicine; ATTEND Internal Medicine
DX: I48.0 Paroxysmal atrial fibrillation (principal); I10 Essential (primary) hypertension; E78.2 Mixed hyperlipidemia; C61 Malignant neoplasm of prostate; Z79.899 Other long term (current) drug therapy; Z79.01 Long term (current) use of anticoagulants
CPT/HCPCS: 36000; 36415; 71046; 80053; 82962; 83605; 83880; 84484; 85025; 85379; 93005; 93041; 93268; 96360; 96361; 96374; 99285; A9270-GY; G0378

== ENCOUNTER 2019-04-22 10:36 | Emergency (ER) | payer MEDICARE ==
[2019-04-22] MEDS ORDERED: LOPRESSOR 5 MG/5 ML INJECTION IV ONE ×2 (10:49→10:57)
[2019-04-22 11:04] LABS: BASOPHIL % 0.4 % (0.0-0.4); Basophil (Absolute #) 0.03 (0-0.4); Eosinophil (Absolute #) 0.16 (0-0.5); Granulocyte Absolute (ANC) 5.35 (1.4-6.9); Granulocytes % 67.3 % (36.0-66.0); Hematocrit 44.6 % (42-50); Hemoglobin 15.3 gm/dl (12.5-18.0); Lymphocytes % 22.7 % (24.0-44.0); Mean Cell Volume 89.6 fl (78-100); Mean Corpuscular Hemoglobin 30.7 pg (26-32); Mean Corpuscular Hgb Concent. 34.3 g/dl (32-36); Mean Platelet Volume 8.8 fl (6-9.5); Monocytes % 7.6 % (0.0-12.0); Platelet Count 235 K/mm3 (150-450); Red Blood Count 4.98 M/mm3 (4.1-5.6); Red Cell Distribution Width 12.8 % (11.5-14.0); White Blood Count 7.9 K/mm3 (4.0-10.5)
[2019-04-22 11:16] LABS: INR 1.04 (0.8-3.0); PROTIME 12.1 SECONDS (8.83-12.87)
[2019-04-22 11:25] LABS: Appearance CLEAR (CLEAR); Bilirubin NEGATIVE (NEGATIVE); Blood SMALL Ery/ul (0-5); Glucose NEGATIVE (NEGATIVE); Ketones NEGATIVE (NEGATIVE); Leukocyte Esterase NEGATIVE (NEGATIVE); Nitrite NEGATIVE (NEGATIVE); Protein,Urine Dip NEGATIVE (Negative); Specific Gravity 1.003 (1.005-1.025); Urobilinogen NEGATIVE mg/dL (0-1)
[2019-04-22] MEDS ORDERED: Toprol-Xl 25MG Tablets PO ONE (11:27)
[2019-04-22 11:29] LABS: ALBUMIN 4.2 g/dL (3.5-5.0); ALKALINE PHOSPHATASE 77 U/L (38-126); ANION GAP 13.9 MEQ/L (5-15); BLOOD UREA NITROGEN 15 mg/dL (9-20); CHLORIDE 106 mmol/L (98-107); Calcium 9.5 mg/dL (8.4-10.2); Carbon Dioxide 25 mmol/L (22-30); Glucose 107 mg/dL (74-106); NT PRO BNP 219 pg/mL (0-900); Potassium 3.8 mmol/L (3.5-5.1); SGOT/AST 29 U/L (17-59); SGPT/ALT 22 U/L (0-50); SODIUM 142 mmol/L (137-145); Total Protein 7.7 g/dL (6.3-8.2)
[2019-04-22] MEDS ORDERED: Toprol-Xl 25MG Tablets ONE (11:48)
[2019-04-22 14:03] VITALS: O2SAT 97
--- NOTE | 2019-04-22 14:51 | ERPHSYRPT ---
- History of Present Illness Source: patient Exam Limitations: no limitations Patient Subjective Stated Complaint: tachycardic Triage Nursing Assessment: pt walked into the ER, c/o of recurrent tachycardia, bounding pulses, HR 142, skin normal and dry, denies pain, doesn't appear to be in any distress Physician History: Pt is a 68 y/o male with a h/o PAF. He woke up at 2:00AM with a fib, and when he took his HR was found to be in the 140s. He took Cardizem 240mg that is his daily dose. a couple of hours ago he took 30mg more, and twice again. Total dose was 330mg of Cardizem, with no change. At this point, pt presented to the ED. He did take his Elequs, and Losartan. Pt denies chest pain. No F/C/S. No N/V/D or abdominal pain. No diaphoresis. Timing/Duration: today Activities at Onset: none Severity of Pain-Max: none Severity of Pain-Current: none Modifying Factors: Improves With: palpation Nitro Today/Relief: no nitro taken today Aspirin Treatment Today: no aspirin today Associated Symptoms: denies symptoms Prior Chest Pain/Cardiac Workup: no prior chest pain Allergies/Adverse Reactions: No Known Drug Allergies Allergy (Verified 04/22/19 10:57) Home Medications: Cholecalciferol (Vitamin D3) [Vitamin D] 1,000 unit PO DAILY 04/18/16 [ History] Glucosamine/MSM/Chondroitin A [Glucosamine Chondroit MSM Tab] 1 each PO BID [History] Multivit-Mins/Iron/Folic/Lycop [Centrum Men's Tablet] 1 each PO DAILY 04/18/16 [ History] Losartan Potassium 50 mg [Cozaar 50 MG] 1 tab PO DAILY 02/09/19 [History] Pravastatin Sodium 40 mg PO UD 02/10/19 [History] dilTIAZem HCl [Diltiazem 24Hr ER (Cd)] 240 mg PO DAILY 02/10/19 [History] Hx Tetanus, Diphtheria Vaccination/Date Given: No Hx Influenza Vaccination/Date Given: Yes (2014) Hx Pneumococcal Vaccination/Date Given: No - Review of Systems Constitutional: No Fever, No Chills Eyes: No Symptoms Ears, Nose, & Throat: No Symptoms Respiratory: No Cough, No Dyspnea Cardiac: Palpitations Abdominal/Gastrointestinal: No Abdominal Pain, No Nausea, No Vomiting, No Diarrhea Genitourinary Symptoms: No Dysuria Musculoskeletal: No Back Pain, No Neck Pain Neurological: No Dizziness, No Focal Weakness, No Sensory Changes - Past Medical History Pertinent Past Medical History: Yes Neurological History: No Pertinent History ENT History: No Pertinent History Cardiac History: Arrhythmia, High Cholesterol, Hypertension Respiratory History: Sleep Apnea Endocrine Medical History: No Pertinent History Musculoskeletal History: Arthritis GI Medical History: GERD History: No Pertinent History Psycho-Social History: No Pertinent History Male Reproductive Disorders: Prostate Problems - Past Surgical History Past Surgical History: Yes Neuro Surgical History: No Pertinent History Cardiac: No Pertinent History Respiratory: No Pertinent History Gastrointestinal: No Pertinent History Genitourinary: No Pertinent History Musculoskeletal: No Pertinent History Male Surgical History: Prostate Surgery, Vasectomy - Social History Smoking Status: Never smoker Exposure to second hand smoke: No Alcohol Use: Socially Drug Use: none Patient Lives Alone: No Significant Family History: no pertinent family hx - Nursing Vital Signs Nursing Vital Signs: Initial Vital Signs Temperature 98.1 F 04/22/19 10:41 Pulse Rate 142 H 04/22/19 10:41 Blood Pressure 152/96 04/22/19 10:41 O2 Sat by Pulse Oximetry 96 04/22/19 10:41 Pain Scale Pain Intensity 0 - Physical Exam General Appearance: no apparent distress, alert Eye Exam: PERRL/EOMI, eyes nml inspection Ears, Nose, Throat Exam: normal ENT inspection, moist mucous membranes Neck Exam: normal inspection, non-tender, supple Respiratory Exam: normal breath sounds, lungs clear, No respiratory distress Cardiovascular Exam: tachycardia, irregular Gastrointestinal/Abdomen Exam: soft, No tenderness, No mass Back Exam: normal inspection, No CVA tenderness, No vertebral tenderness Extremity Exam: normal inspection, normal range of motion Neurologic Exam: alert, oriented x 3, cooperative, normal mood/affect, nml cerebellar function, sensation nml, No motor deficits SpO2: 97 - Course Nursing assessment & vital signs reviewed: Yes EKG Interpreted by Me: RATE ([id number]), Sinus Tach, Non-specific ST Changes Ordered Tests: Active Orders 24 hr Category Date Time Status CBC W DIFF Stat Lab 04/22/19 10:57 Completed CMP Stat Lab 04/22/19 10:57 Completed NT PRO BNP Stat Lab 04/22/19 10:57 Completed PROTIME WITH INR Stat Lab 04/22/19 10:57 Completed TROPONIN Q3H Lab 04/22/19 10:57 Completed TROPONIN Q3H Lab 04/22/19 14:08 Completed TROPONIN Q3H Lab 04/22/19 17:00 Ordered TROPONIN Q3H Lab 04/22/19 20:00 Ordered TROPONIN Q3H Lab 04/22/19 23:00 Ordered Urinalysis with Microscopy Stat Lab 04/22/19 11:10 Completed Medication Summary Discontinued Medications Generic Name Dose Route Start Last Admin Trade Name Freq PRN Reason Stop Dose Admin Metoprolol Succinate 25 mg 04/22/19 11:27 04/22/19 11:49 Toprol-Xl 25mg Tablets PO 04/22/19 11:28 25 mg STAT ONE Administration Metoprolol Succinate Confirm 04/22/19 11:48 Toprol-Xl 25mg Tablets Administered 04/22/19 11:49 Dose 25 mg .ROUTE .STK-MED ONE Metoprolol Tartrate 2.5 mg 04/22/19 10:49 04/22/19 10:58 Lopressor 5 Mg/5 Ml Injection IV 04/22/19 10:50 2.5 mg STAT ONE Administration Metoprolol Tartrate Confirm 04/22/19 10:57 Lopressor 5 Mg/5 Ml Injection Administered 04/22/19 10:58 Dose 5 mg IV .STK-MED ONE Lab/Rad Data: Laboratory Result Diagrams 04/22/19 10:57 04/22/19 10:57 Laboratory Results 04/22/19 04/22/19 04/22/19 Range/Units 14:08 11:10 10:57 WBC (4.0-10.5) K/mm3 RBC (4.1-5.6) M/mm3 Hgb (12.5-18.0) gm/dl Hct (42-50) % MCV (78-100) fl MCH (26-32) pg MCHC (32-36) g/dl RDW (11.5-14.0) % Plt Count (150-450) K/mm3 MPV (6-9.5) fl Gran % (36.0-66.0) % Eos # (Auto) (0-0.5) Absolute Lymphs (auto) (1.0-4.6) Absolute Monos (auto) (0.0-1.3) Lymphocytes % (24.0-44.0) % Monocytes % (0.0-12.0) % Eosinophils % (0.00-5.0) % Basophils % (0.0-0.4) % Absolute Granulocytes (1.4-6.9) Basophils # (0-0.4) PT (8.83-12.87) SECONDS INR (0.8-3.0) Sodium (137-145) mmol/L Potassium (3.5-5.1) mmol/L Chloride (98-107) mmol/L Carbon Dioxide (22-30) mmol/L Anion Gap (5-15) MEQ/L BUN (9-20) mg/dL Creatinine (0.66-1.25) mg/dL Estimated GFR ML/MIN Glucose (74-106) mg/dL Calcium (8.4-10.2) mg/dL Total Bilirubin (0.2-1.3) mg/dL AST (17-59) U/L ALT (0-50) U/L Alkaline Phosphatase (38-126) U/L Troponin I < 0.012 < 0.012 (0.000-0.034) ng/mL NT-Pro-B Natriuret Pep (0-900) pg/mL Serum Total Protein (6.3-8.2) g/dL Albumin (3.5-5.0) g/dL Urine Color STRAW (YELLOW) Urine Appearance CLEAR (CLEAR) Urine pH 6.0 (5-6) Ur Specific [place] 1.003 (1.005-1.025) Urine Protein NEGATIVE (Negative) Urine Ketones NEGATIVE (NEGATIVE) Urine Blood SMALL (0-5) [place]/ul Urine Nitrite NEGATIVE (NEGATIVE) Urine Bilirubin NEGATIVE (NEGATIVE) Urine Urobilinogen NEGATIVE (0-1) mg/dL Ur Leukocyte Esterase NEGATIVE (NEGATIVE) Urine WBC (Auto) NONE (0-5) /HPF Urine RBC (Auto) NONE (0-2) /HPF U Epithel Cells (Auto) NONE (FEW) /HPF Urine Bacteria (Auto) NONE (NEGATIVE) /HPF Urine Glucose NEGATIVE (NEGATIVE) mg/dL 04/22/19 04/22/19 04/22/19 Range/Units 10:57 10:57 10:57 WBC 7.9 (4.0-10.5) K/mm3 RBC 4.98 (4.1-5.6) M/mm3 Hgb 15.3 (12.5-18.0) gm/dl Hct 44.6 (42-50) % MCV 89.6 (78-100) fl MCH 30.7 (26-32) pg MCHC 34.3 (32-36) g/dl RDW 12.8 (11.5-14.0) % Plt Count 235 (150-450) K/mm3 MPV 8.8 (6-9.5) fl Gran % 67.3 H (36.0-66.0) % Eos # (Auto) 0.16 (0-0.5) Absolute Lymphs (auto) 1.80 (1.0-4.6) Absolute Monos (auto) 0.60 (0.0-1.3) Lymphocytes % 22.7 L (24.0-44.0) % Monocytes % 7.6 (0.0-12.0) % Eosinophils % 2.0 (0.00-5.0) % Basophils % 0.4 (0.0-0.4) % Absolute Granulocytes 5.35 (1.4-6.9) Basophils # 0.03 (0-0.4) PT 12.1 (8.83-12.87) SECONDS INR 1.04 (0.8-3.0) Sodium 142 (137-145) mmol/L Potassium 3.8 (3.5-5.1) mmol/L Chloride 106 (98-107) mmol/L Carbon Dioxide 25 (22-30) mmol/L Anion Gap 13.9 (5-15) MEQ/L BUN 15 (9-20) mg/dL Creatinine 0.80 (0.66-1.25) mg/dL Estimated GFR > 60.0 ML/MIN Glucose 107 H (74-106) mg/dL Calcium 9.5 (8.4-10.2) mg/dL Total Bilirubin 0.40 (0.2-1.3) mg/dL AST 29 (17-59) U/L ALT 22 (0-50) U/L Alkaline Phosphatase 77 (38-126) U/L Troponin I (0.000-0.034) ng/mL NT-Pro-B Natriuret Pep 219 (0-900) pg/mL Serum Total Protein 7.7 (6.3-8.2) g/dL Albumin 4.2 (3.5-5.0) g/dL Urine Color (YELLOW) Urine Appearance (CLEAR) Urine pH (5-6) Ur Specific [place] (1.005-1.025) Urine Protein (Negative) Urine Ketones (NEGATIVE) Urine Blood (0-5) [place]/ul Urine Nitrite (NEGATIVE) Urine Bilirubin (NEGATIVE) Urine Urobilinogen (0-1) mg/dL Ur Leukocyte Esterase (NEGATIVE) Urine WBC (Auto) (0-5) /HPF Urine RBC (Auto) (0-2) /HPF U Epithel Cells (Auto) (FEW) /HPF Urine Bacteria (Auto) (NEGATIVE) /HPF Urine Glucose (NEGATIVE) mg/dL - Progress Progress: improved Air Movement: good Progress Note: 04/22/19 14:51 Pt had lab work done, and Metoprolol 2.5mg IV was given. HR slowed down. Troponin x2 were negative. Pro BNP wa 219. No leukocytosis. UA was clear. Pt got Toprol XL 25mg PO and his HR and BP were well controlled. Pt is cleared for D/C, and a prescription for Toprol will be sent to his pharmacy of choice. Pt should f/u with HIS hosiery pairer this week. Blood Culture(s) Obtained: No Antibiotics given: No Discussed with : Miguelito Will see patient in: office Counseled pt/family regarding: need for follow-up - Departure Departure Disposition: Home Clinical Impression: Atrial fibrillation with RVR, Paroxysmal atrial fibrillation with rapid ventricular response Condition: Stable Critical Care Time: No Referrals: SOFIA HERNANDEZ [Primary Care Provider] - Additional Instructions: F/U with Cardiology this week. Take Toprol XL daily. Prescriptions: Metoprolol Succinate 25 mg Xl* [Toprol-Xl 25MG Tablets] 25 mg PO DAILY #30 tab
[2019-04-22 14:56] VITALS: BP 115/91; PULSE 87
== END 2019-04-22 15:03 | disposition home or self-care (01) ==
LOC: ED 10:36
DX: I48.91 Unspecified atrial fibrillation (principal); E78.00 Pure hypercholesterolemia, unspecified; I10 Essential (primary) hypertension; G47.30 Sleep apnea, unspecified; M19.90 Unspecified osteoarthritis, unspecified site; K21.9 Gastro-esophageal reflux disease without esophagitis
CPT/HCPCS: 36000; 36415; 80053; 81001; 83880; 84484; 85025; 85610; 96374; 99284; A9270-GY

== ENCOUNTER 2019-04-22 16:22 | Emergency (ER) | payer MEDICARE ==
--- NOTE | 2019-04-22 17:14 | ERPHSYRPT ---
- History of Present Illness Source: patient Exam Limitations: no limitations Patient Subjective Stated Complaint: a-fib with RVR and atrial flutter Triage Nursing Assessment: Pt walked into the ER, tachycardic, hypertensive, denies pain, no edema, pulses bounding, no shortness of breath Physician History: Pt is a 68 y/o with h/o PAF that was just d/c from the ER with A fib with RVR that was controlled with metoprolol. Pt came back to the ED with same complains , and HR in the 140s. Timing/Duration: today Activities at Onset: none Chest Pain Radiation: no radiation Severity of Pain-Max: none Severity of Pain-Current: none Modifying Factors: Improves With: nothing Nitro Today/Relief: no nitro taken today Aspirin Treatment Today: no aspirin today Associated Symptoms: denies symptoms Allergies/Adverse Reactions: No Known Drug Allergies Allergy (Verified 04/22/19 10:57) Home Medications: Cholecalciferol (Vitamin D3) [Vitamin D] 1,000 unit PO DAILY 04/18/16 [ History] Glucosamine/MSM/Chondroitin A [Glucosamine Chondroit MSM Tab] 1 each PO BID [History] Multivit-Mins/Iron/Folic/Lycop [Centrum Men's Tablet] 1 each PO DAILY 04/18/16 [ History] Losartan Potassium 50 mg [Cozaar 50 MG] 1 tab PO DAILY 02/09/19 [History] Pravastatin Sodium 40 mg PO UD 02/10/19 [History] dilTIAZem HCl [Diltiazem 24Hr ER (Cd)] 240 mg PO DAILY 02/10/19 [History] Hx Tetanus, Diphtheria Vaccination/Date Given: No Hx Influenza Vaccination/Date Given: Yes (2014) Hx Pneumococcal Vaccination/Date Given: No - Review of Systems Constitutional: No Fever, No Chills Ears, Nose, & Throat: No Symptoms Respiratory: No Cough, No Dyspnea Cardiac: Palpitations Abdominal/Gastrointestinal: No Abdominal Pain, No Nausea, No Vomiting, No Diarrhea Musculoskeletal: No Back Pain, No Neck Pain Neurological: No Dizziness, No Focal Weakness, No Sensory Changes - Past Medical History Pertinent Past Medical History: Yes Neurological History: No Pertinent History ENT History: No Pertinent History Cardiac History: Arrhythmia, High Cholesterol, Hypertension Respiratory History: Sleep Apnea Endocrine Medical History: No Pertinent History Musculoskeletal History: Arthritis GI Medical History: GERD History: No Pertinent History Psycho-Social History: No Pertinent History Male Reproductive Disorders: Prostate Problems - Past Surgical History Past Surgical History: Yes Neuro Surgical History: No Pertinent History Cardiac: No Pertinent History Respiratory: No Pertinent History Gastrointestinal: No Pertinent History Genitourinary: No Pertinent History Musculoskeletal: No Pertinent History Male Surgical History: Prostate Surgery, Vasectomy - Social History Smoking Status: Never smoker Exposure to second hand smoke: No Alcohol Use: Socially Drug Use: none Patient Lives Alone: No Significant Family History: no pertinent family hx - Nursing Vital Signs Nursing Vital Signs: Initial Vital Signs Temperature 98.1 F 04/22/19 16:28 Pulse Rate 142 H 04/22/19 16:28 Respiratory Rate 17 04/22/19 16:28 Blood Pressure 162/95 04/22/19 16:28 O2 Sat by Pulse Oximetry 96 04/22/19 16:28 Pain Scale Pain Intensity 0 - Physical Exam General Appearance: no apparent distress, alert Eye Exam: PERRL/EOMI, eyes nml inspection Ears, Nose, Throat Exam: normal ENT inspection, moist mucous membranes Respiratory Exam: normal breath sounds, lungs clear, No respiratory distress Cardiovascular Exam: normal heart sounds, irregular, No edema SpO2: 96 - Course Nursing assessment & vital signs reviewed: Yes EKG Interpreted by Me: RATE ([id number]), A-fib Ordered Tests: Active Orders 24 hr Category Date Time Status EKG-ER Only STAT Care 04/22/19 17:04 Active IV Insertion STAT Care 04/22/19 17:14 Active - Progress Progress: unchanged Air Movement: good Progress Note: 04/22/19 17:12 Pt presented to the ER again, with same symptoms. [facility] ER was contacted, and pt was auto accepted. He will be transferred to [facility]. Dr Head is accepting. 04/22/19 17:21 Discussed with : Miguelito Will see patient in: other (Transfer to [facility] ER) - Departure Departure Disposition: Transfer Clinical Impression: Atrial fib/flutter, transient Condition: Stable Critical Care Time: No Referrals: SOFIA HERNANDEZ [Primary Care Provider] - Additional Instructions: Pt will be transferred to [facility] ER, Dr Head accepting.
[2019-04-22 17:53] VITALS: BP 138/101; PULSE 92; O2SAT 95
== END 2019-04-22 18:08 | disposition short-term general hospital (02) ==
LOC: ED 16:22
DX: I48.91 Unspecified atrial fibrillation (principal); E78.00 Pure hypercholesterolemia, unspecified; I10 Essential (primary) hypertension; G47.30 Sleep apnea, unspecified; M19.90 Unspecified osteoarthritis, unspecified site; K21.9 Gastro-esophageal reflux disease without esophagitis; Z79.899 Other long term (current) drug therapy
CPT/HCPCS: 36000; 36415; 80053; 81001; 83880; 84484; 85025; 85610; 93005; 96374; 99284; A9270-GY